=== PATIENT | female | born 1965 | race Caucasian/White ===

== ENCOUNTER 2017-11-02 13:01 | Emergency (ER) | payer MEDICAID, OTHER ==
[2017-11-02] MEDS: KETOROLAC 30 MG INJ IM (15:18)
== END 2017-11-02 17:01 | disposition home or self-care (01) ==
LOC: FTE 13:01
DX: M75.91 Shoulder lesion, unspecified, right shoulder (principal); E11.9 Type 2 diabetes mellitus without complications; Z79.84 Long term (current) use of oral hypoglycemic drugs
CPT/HCPCS: 73030; 73030-RT; 96372; 99284-25